=== PATIENT | female | born 1955 | race Caucasian/White ===

== ENCOUNTER → 2019-09-29 | Outpatient (CLI) | payer OTHER ==
[~2019-09-29] MED LIST: CATHETER FLUSH 10 ML SYR IV PRN; HOLD METFORMIN - RECEIVED CONTRAST 20 ML VIAL IV SCH; IOHEXOL 350 MG/ML 100 ML (OMNIPAQUE 350) VIAL IV ONE; NS 100 ML (IVPB) BAG IV ONE
--- NOTE | 2019-09-29 11:25 | Diagnostic Imaging Report ---
PROCEDURE: CT chest, abdomen, and pelvis with contrast. TECHNIQUE: Multiple contiguous axial images were obtained through the chest, abdomen, and pelvis after the administration of intravenous contrast. Auto Exposure Controls were utilized during the CT exam to meet ALARA standards for radiation dose reduction. DATE: September 29, 2019. COMPARISON: None. INDICATION: 64-year-old female, cough, wheezing, shortness of breath. Hemoptysis. Abdominal distention. FINDINGS: There are upper lobe predominant findings of emphysema. There are mild linear opacities in the right lower lobe and left lower lobe, consistent with atelectasis and/or scarring. There is nonspecific focal opacification in a right lower lobe bronchus on axial image 73. Comparison imaging is not available to assess for potential presence of this finding previously. There are very mild linear opacities in the right middle lobe and lingula, consistent with atelectasis and/or scarring. There is no identified pulmonary nodule. There is no lung mass. There is no additional focal airspace consolidation. There is no identified pulmonary embolus. The heart is not enlarged. There is no pericardial effusion. There is no identified abnormally enlarged mediastinal, hilar, or axillary lymph node which meets CT size criteria for adenopathy. The liver is unremarkable in size and contour. The main, right, and left portal veins are patent. The patient is status post cholecystectomy. There is no intrahepatic or extrahepatic bile duct dilation. The main pancreatic duct is not abnormally dilated. Unremarkable appearance of the pancreatic parenchyma. The spleen is normal in size. The adrenal glands are unremarkable. Unremarkable appearance of the renal parenchyma. The urinary collecting systems are not distended. There is no identified renal or ureteral stone. The urinary bladder is unremarkable. The uterus is not seen and may be surgically absent. There is nonspecific wall thickening of the transverse colon. The appendix is unremarkable. There is mild fatty wall thickening of the right colon, compatible with chronic colitis. There is no free intraperitoneal air. There is no drainable fluid collection. There is no free pelvic fluid. There are atherosclerotic calcifications. There is no identified abnormally enlarged lymph node in the abdomen or pelvis which meets CT size criteria for adenopathy. There are degenerative changes of the spine. There is no identified acute bony abnormality. IMPRESSION: 1. Nonspecific opacification within a right lower lobe bronchus posteriorly. This potentially could relate to mucus, debris, or an endobronchial lesion. The extent of opacification measures roughly 9 x 5 mm in size. 2. Mild atelectasis and/or scarring in the right and left lower lobes, right middle lobe, and lingula. 3. Upper lobe predominant findings of emphysema. 4. Wall thickening of the transverse colon which may relate to a nonspecific active colitis. Fatty wall thickening of the right colon is likely relating to chronic colitis. Dictated by: Dictated on workstation # [id number]
== END ==
LOC: RAD FS 08:20
PROVIDERS: ATTEND Nurse Practitioner Family
DX: M79.89 Other specified soft tissue disorders (principal); N64.4 Mastodynia; J98.4 Other disorders of lung; J98.11 Atelectasis; J43.9 Emphysema, unspecified; K63.89 Other specified diseases of intestine
CPT/HCPCS: 71260; 74177

== ENCOUNTER → 2021-09-29 | Outpatient (CLI) | payer OTHER ==
--- NOTE | 2021-09-29 14:41 | Diagnostic Imaging Report ---
EXAMINATION: Chest 2 view HISTORY: COPD EXACERBATION COMPARISON: CT 09/29/2019 FINDINGS: Heart size and pulmonary vasculature are normal. There are mild basilar interstitial opacities. No pleural effusion or pneumothorax. The osseous structures are intact. IMPRESSION: 1. Mild left basilar interstitial opacities which could be seen with atelectasis or scarring although atypical infection or pulmonary edema would be within the differential in the appropriate clinical setting. Dictated by: Dictated on workstation # [id number]
== END ==
LOC: RAD FS 14:05
PROVIDERS: ATTEND Nurse Practitioner Family
DX: J44.1 Chronic obstructive pulmonary disease with (acute) exacerbation (principal)
CPT/HCPCS: 71046

== ENCOUNTER → 2021-11-20 | Outpatient (CLI) | payer OTHER ==
[~2021-11-20] VITALS: Ht 154 cm; Wt 77.0 kg
[~2021-11-20] MED LIST changes: -CATHETER FLUSH 10 ML SYR IV PRN; +CATHETER FLUSH 10 ML SYR IVP PRN; -HOLD METFORMIN - RECEIVED CONTRAST 20 ML VIAL IV SCH; -IOHEXOL 350 MG/ML 100 ML (OMNIPAQUE 350) VIAL IV ONE; -NS 100 ML (IVPB) BAG IV ONE; +REGADENOSON 0.4 MG/5 ML SYR (LEXISCAN) IV ONE
[2021-11-20 09:42] VITALS: BP 141/91
--- NOTE | 2021-11-20 11:34 | Cardiology Stress Test Report ---
Stress Test Report Date of Procedure/Referring: Date of Procedure: Nov 20, 2021 Bertha Fernando Admitting Physician Keena Arnold Aprn Indications: CP Baseline Heart Rate: 61 Baseline Blood Pressure: Blood Pressure Systolic: 141 Blood Pressure Diastolic: 91 Baseline Vitals Vital Signs Date Time Temp Pulse Resp B/P (MAP) Pulse Ox O2 Delivery O2 Flow Rate FiO2 11/20/21 09:42 61 141/91 (108) Baseline EKG: Baseline EKG: NSR Summary After explaining the procedure to the patient, she signed a consent and then brought to the stress nuclear laboratory. Patient received 0.4 mg Lexiscan for stress test, ECG, heart rate and blood pressure were monitored continuously. Resting and stress dose of radio tracer were injected, imaging was acquired and reviewed in short axis, horizontal long axis and vertical long axis views. TID: 0.98 SSS: 4 SDS: 4 EF: 73 1. Patient tolerated Lexiscan well 2. Breast attenuation with mild decrease uptake involving the apex and the apical segment of the anterior lateral wall with mild reversibility probably due to the breast attenuation 3. Normal left ventricular size, EF 73% ALBAN SHEA MD Nov 20, 2021 11:34
== END ==
LOC: CARD 08:45
PROVIDERS: ATTEND Physician Assistant
DX: J44.9 Chronic obstructive pulmonary disease, unspecified (principal); I10 Essential (primary) hypertension; I51.7 Cardiomegaly
CPT/HCPCS: 78452; 93017; 93306; A9502

== ENCOUNTER 2021-11-29 14:00 | Day surgery (SDC) | payer OTHER ==
[~2021-11-29] VITALS: Ht 154.9 cm; Wt 78.4 kg
[2021-11-29] VITALS (11 sets, daily range): BP systolic 112–168; BP diastolic 52–80
[2021-11-29 12:19] LABS: HEMATOCRIT 45 % (35-52); HEMOGLOBIN 14.4 g/dL (11.5-16.0); MEAN CORPUSCULAR HEMOGLOBIN 29 pg (25-34); MEAN CORPUSCULAR HGB CONC 32 g/dL (32-36); MEAN CORPUSCULAR VOLUME 91 fL (80-99); MEAN PLATELET VOLUME 9.8 fL (9.0-12.2); PLATELET COUNT 293 10^3/uL (130-400); WHITE BLOOD COUNT 6.4 10^3/uL (4.3-11.0)
[2021-11-29 12:20] LABS: BILIRUBIN,URINE NEGATIVE (NEGATIVE); CLARITY,URINE SL CLOUDY; COLOR,URINE YELLOW; GLUCOSE, URINE (UA) NEGATIVE (NEGATIVE); KETONES,URINE NEGATIVE (NEGATIVE); LEUKOCYTE ESTERASE ,URINE NEGATIVE (NEGATIVE); NITRITE,URINE NEGATIVE (NEGATIVE); PH,URINE 6.5 (5-9); PROTEIN,URINE NEGATIVE (NEGATIVE)
--- NOTE | 2021-11-29 12:28 | Diagnostic Imaging Report ---
INDICATION: ABN STRESS, CP HTN HLP COMPARISON: 09/29/2021 FINDINGS: Single frontal view of the chest demonstrates normal heart size and pulmonary vascularity. The lungs show streaky atelectasis in both lung bases, but are otherwise clear. No large pleural effusion or pneumothorax is seen. The visualized osseous structures show no acute abnormalities. IMPRESSION: 1. No acute cardiopulmonary process. Dictated by: Dictated on workstation # [id number]
[2021-11-29 12:33] LABS: INR 0.9 (0.8-1.4); PROTHROMBIN TIME PATIENT 12.4 SEC (12.2-14.7)
[2021-11-29 12:40] LABS: ALBUMIN 4.3 GM/DL (3.2-4.5); BILIRUBIN,TOTAL 1.4 MG/DL (0.1-1.0); CALCIUM 9.2 MG/DL (8.5-10.1); CREATININE SERUM 0.75 MG/DL (0.60-1.30); POTASSIUM 3.7 MMOL/L (3.6-5.0); TOTAL PROTEIN 7.9 GM/DL (6.4-8.2)
[2021-11-29 12:46] LABS: BACTERIA,URINE NEGATIVE /HPF
[~2021-11-29 14:00] MED LIST changes: +BUDE10.22 IH; -CATHETER FLUSH 10 ML SYR IVP PRN; +HEParin (CATH LAB) 2,000 ML IV ONE; +HEParin 1000 UNIT/ML (10ML VIAL) FOR BOLUS ONE; +IPRA4AER IH; +LIDOCAINE 1% INJ 50 ML (XYLOCAINE) VIAL ONE; +MIDAZOLAM 5 MG/5 ML (VERSED) VIAL ONE; +NITRO DRIP 25000 MCG/D5W 0 ML IV ONE; +NS IV 1000 ML 1,000 ML IV SCH; +NS IV 1000 ML 1,000 ML ONE; +PANT40TA52 PO; -REGADENOSON 0.4 MG/5 ML SYR (LEXISCAN) IV ONE; +RT-ALBUINH INH; +VERAPAMIL 5 MG/2 ML (CALAN) VIAL IV ONE; +fentaNYL INJ 100 MCG/2 ML AMP ONE
--- NOTE | 2021-11-29 14:25 | Discharge Inst-Post CATH ---
Discharge Inst-CATH/EP Problems Reviewed?: Yes Post Cardiac Cath/EP D/C Inst Follow Up/Plan Appointment with Dr. Ashton's office in 2 to 4 weeks <b>CARDIAC CATH/EP PROCEDURE DISCHARGE INSTRUCTIONS</b> ACTIVITY * Go Home directly and rest. * Limit activity of the leg (or wrist if it was used) for 7 days including aer obics, swimming, jogging, bicycling, etc. * Restrict stair-climbing for 7 days if possible, if not, climb up with your non-cath leg, then bring together on the same step. * Avoid lifting, pushing, pulling or excessive movement of the affected extremi ty for 7 days. * Customary sexual activity may be resumed after 2 days-use caution not to use a position that strains or causes pain to the affected extremity. * No driving for 24 hours. * NO SMOKING. * Avoid straining for bowel movements for 7 days. * Gentle walking on level ground is allowed. * Returning to work will depend on the type of procedure and the results. Your doctor will discuss this with you. CALL YOUR DOCTOR FOR ANY OF THE FOLLOWING: *If bleeding from the puncture site occurs- Apply gentle pressure to site with clean cloth and call your doctor or EMS. * If a knot or lump forms under the skin, increases in size, or causes pain. * If bruising appears to be worsening or moving further down your leg instead of disappearing. * Temperature above 101 F. CARE OF YOUR GROIN INCISION; * Bruising or purple discoloration of the skin near the puncture site is common. * You may shower only, no bathtub bathing for 5 days. Be careful to avoid slipping as your leg may feel stiff. * If a closure device was used on your femoral artery, please see the attached guide regarding care of the device and your leg. * Leave dressing on FOR 24 hours. CARE OF YOUR WRIST INCISION; * Bruising or purple discoloration of the skin near the puncture site is common. * You may shower. * DO NOT submerge wrist. * Leave dressing on FOR 24 hours. ALBAN ASHTON MD Nov 29, 2021 14:25
--- NOTE | 2021-11-29 14:27 | Cardiac Cath Report ---
Cardiac Cath Report Physician (s)/Wireline Operator (s) Physician ALBAN SHEA MD Pre-Procedure Diagnosis Pre-Procedure Diagnosis: Coronary artery disease Post-Procedure Note Procedure Start Date: Nov 29, 2021 Name of Procedure: Left heart catheterization Findings/Procedure Note PROCEDURE NOTE: 66-year-old lady with history of hypertension, has been having chest pain, had an abnormal stress test, scheduled for cardiac catheterization possible PTCA. After explaining the procedure to the patient, all pros and cons were explained, all questions were answered. The patient signed the consent and then she was placed on the cardiac catheterization laboratory. Groin was prepped SL fashion local anesthesia was used. Sheath placed in the right femoral artery. Amandeep right and left catheter were used to access the coronary system. Amandeep right catheter was prolapsed to the left ventricular cavity, pressure was measured, pullback LV to aorta was done. At the end of the procedure the sheath was removed. Manual pressure applied FINDINGS: Hemodynamics LV 113/16, end-diastolic pressure of 16 Aorta 120/66 mean of 86 ANATOMY: Left Main is free of obstructive disease Left Anterior Descending has mild disease nonobstructive disease Left Circumflex has mild disease nonobstructive disease Right Coronary Artery has mild disease nonobstructive disease LV Gram was not done, pressure was measured CONCLUSION: 1. Mild coronary artery disease nonobstructive disease 2. Normal left ventricular end-diastolic pressure DISCUSSION AND RECOMMENDATION: Medical therapy is recommended no intervention is warranted. Anesthesia Type: Conscious Sedation Estimated blood loss (mL): 30 ml Contrast Amount: 38 ml Total Radiation Dose: 287 mGy Post-Procedure Diagnosis Post-operative diagnosis: Chest pain Coronary artery disease Hypertension Hyperlipidemia ALBAN SHEA MD Nov 29, 2021 14:27
[2021-11-29] MEDS ORDERED: PATIENT MAY USE OWN MEDS, ALL PO SCH (14:30)
[2021-11-29] MEDS ORDERED: NS IV 1000 ML 1,000 ML IV SCH (14:30)
== END 2021-11-29 19:00 | disposition home or self-care (01) ==
LOC: CATH 14:00
PROVIDERS: ATTEND Internal Medicine Cardiovascular Disease
DX: I25.10 Atherosclerotic heart disease of native coronary artery without angina pectoris (principal); I10 Essential (primary) hypertension; E78.5 Hyperlipidemia, unspecified; J44.9 Chronic obstructive pulmonary disease, unspecified; G47.33 Obstructive sleep apnea (adult) (pediatric); Z87.891 Personal history of nicotine dependence; Z79.899 Other long term (current) drug therapy
CPT/HCPCS: 71045; 80053; 80061; 81000; 85027; 85610; 85730; 87081; 93458; C1894; 36415

== ENCOUNTER → 2022-07-17 | Outpatient (CLI) | payer MEDICARE, OTHER ==
[~2022-07-17] MED LIST changes: -HEParin (CATH LAB) 2,000 ML IV ONE; -HEParin 1000 UNIT/ML (10ML VIAL) FOR BOLUS ONE; -LIDOCAINE 1% INJ 50 ML (XYLOCAINE) VIAL ONE; -MIDAZOLAM 5 MG/5 ML (VERSED) VIAL ONE; -NITRO DRIP 25000 MCG/D5W 0 ML IV ONE; -NS IV 1000 ML 1,000 ML IV SCH; -NS IV 1000 ML 1,000 ML ONE; -VERAPAMIL 5 MG/2 ML (CALAN) VIAL IV ONE; -fentaNYL INJ 100 MCG/2 ML AMP ONE
--- NOTE | 2022-07-17 12:53 | Diagnostic Imaging Report ---
INDICATION: Abdominal pain The patient was administered a solid test meal with 1.08 mCi Tc 99M sulfur colloid used for labeling of the meal. Region of interest curves were drawn over the stomach with the percent of retained activity calculated at hourly timed intervals for a total of 4 hours. A time activity curve was generated. FINDINGS: Percent retention as follows: (percent of administered activity retained within the stomach): 1.0 hour: 29% {<30% = Rapid, >90% = Delayed} 2.0 hour: 2% {>60% = Abnormally Delayed} 3.0 hour: 1% {>30% = Abnormally Delayed} 4.0 hour: 1% {>10% = Abnormally Delayed} IMPRESSION: There is fairly rapid gastric emptying. Dictated by: Dictated on workstation # [id number]
== END ==
LOC: CARD 08:14
PROVIDERS: ATTEND Registered Nurse Emergency
DX: R10.9 Unspecified abdominal pain (principal)
CPT/HCPCS: 78264; A9541